=== PATIENT | male | born 1935 | race Caucasian/White ===

== ENCOUNTER 2018-08-13 12:59 | Emergency (ER) | payer MEDICARE ==
[~2018-08-13] VITALS: Ht 157.5 cm; Wt 72.7 kg
[2018-08-13] MEDS ORDERED: LEVE500T53 PO (13:06)
[2018-08-13] MEDS ORDERED: FINA5TAB41 PO (13:06)
[2018-08-13] MEDS ORDERED: SIMV-259 PO (13:06)
[2018-08-13] MEDS ORDERED: WARF2 PO (13:06)
[2018-08-13] MEDS ORDERED: KETOROLAC TROMETHAMINE 10 MG TABLET PO ONE (13:45)
[2018-08-13 15:26] VITALS: BP 132/68
== END 2018-08-13 15:58 | disposition home or self-care (01) ==
LOC: EMS 13:00
DX: M20.12 Hallux valgus (acquired), left foot (principal); D36.7 Benign neoplasm of other specified sites; I11.0 Hypertensive heart disease with heart failure; I50.9 Heart failure, unspecified; E78.00 Pure hypercholesterolemia, unspecified